=== PATIENT | female | born 1970 | race Two or more races ===

== ENCOUNTER 2021-12-18 06:30 | Outpatient (CLI) | payer OTHER | END 2021-12-18 23:59 | disposition home or self-care (01) | LOC: LAB 06:30 | PROVIDERS: ATTEND Specialist | DX: Z01.812 Encounter for preprocedural laboratory examination (principal); Z20.822 Contact with and (suspected) exposure to COVID-19 | CPT/HCPCS: U0003; C9803 ==

== ENCOUNTER 2021-12-25 07:49 | Day surgery (SDC) | payer OTHER ==
[2021-12-25 08:10] VITALS: BP 145/61
[2021-12-25] MEDS ORDERED: FENTANYL PF 100MCG/2ML AMPUL ONE (10:58)
[2021-12-25] MEDS ORDERED: MIDAZOLAM HCL 2 MG/2ML VIAL ONE (10:58)
[2021-12-25] MEDS ORDERED: ROCURONIUM BROMIDE 50 MG/5 ML ONE (10:58)
[2021-12-25] MEDS ORDERED: SUCCINYLCHOLINE CHLORIDE 20 MG/ML VIAL ONE (10:58)
[2021-12-25] MEDS ORDERED: BUPIVACAINE 0.5 % PF 150 MG/30 ML VIAL ONE (11:01)
[2021-12-25] MEDS ORDERED: EPINEPHRINE (1:1000) 1 MG/ML AMPUL ONE (11:02)
[2021-12-25] MEDS ORDERED: methylPREDNISolone ACETATE 80 MG/ML VIAL ONE (11:02)
[2021-12-25 13:10] VITALS: BP 147/72
[2021-12-25 13:40] VITALS: BP 117/72
[2021-12-25] MEDS ORDERED: HYDROCODONE/APAP 5/325MG TABLET PO PRN ×2 (14:00)
[2021-12-25 15:10] VITALS: BP 104/70
[2021-12-25 16:00] VITALS: BP 99/55
--- NOTE | 2021-12-25 16:00 | NUR ---
PATIENT LEFT FACILITY ACCOMPANIED BY STAFF WITH WHEEL CHAIR TO THE PRIVATE CAR. ALL VITAL SIGNS ARE STABLE. GIVEN DISCHARGE INSTRUCTIONS INCLUDE FOLLOW UP DR. MATA, PAIN MEDICATION, CHANGE DRESSING NEEDED. PATIENT DENIES FURTHER QUESTIONS. REMOVED IV LINE BEFORE PATIENT LEAVE THE FACILITY, IN STABLE CONDITION.
== END 2021-12-25 13:00 | disposition home or self-care (01) ==
LOC: DS 07:49 → MED 07:50 → UNDOADMIN 07:50 → DS 13:00 → UNDODISIN 16:00
PROVIDERS: ATTEND Specialist
DX: M75.42 Impingement syndrome of left shoulder (principal)
CPT/HCPCS: 29827; 84703; 29826; J0690; J3490 ×3; J1100; J2704; J0171; J3010; J0330; J2405; C1713 ×2; J2250; A6253; A6403; A4217; G0378; J1040

== ENCOUNTER 2022-06-11 14:57 | Outpatient (CLI) | payer OTHER | END 2022-06-11 23:59 | disposition home or self-care (01) | LOC: LAB 14:57 | PROVIDERS: ATTEND Specialist | DX: Z01.812 Encounter for preprocedural laboratory examination (principal); Z20.822 Contact with and (suspected) exposure to COVID-19 | CPT/HCPCS: U0003; C9803 ==

== ENCOUNTER 2022-06-16 06:16 | Day surgery (SDC) | payer OTHER ==
[~2022-06-16 06:16] MED LIST: ANESTHESIA TRAY IN PYXIS 1 EA TRAY MC ONE
[2022-06-16] MEDS ORDERED: FENTANYL PF 250MCG/5ML AMPUL ONE (06:39)
[2022-06-16] MEDS ORDERED: MIDAZOLAM HCL 2 MG/2ML VIAL ONE (06:39)
[2022-06-16] MEDS ORDERED: HYDROMORPHONE INJ 2 MG/ML DISP.SYRIN ONE (06:40)
[2022-06-16] MEDS ORDERED: FAMOTIDINE/PF INJ 20 MG/2 ML VIAL IV ONE (06:41)
[2022-06-16] MEDS ORDERED: SUCCINYLCHOLINE CHLORIDE 20 MG/ML VIAL ONE (06:41)
[2022-06-16] MEDS ORDERED: HYDROCODONE/APAP 5/325MG TABLET ONE (07:55)
[2022-06-16] MEDS ORDERED: ONDANSETRON HCL/PF 4 MG/2 ML VIAL ONE (08:33)
== END 2022-06-16 08:50 | disposition home or self-care (01) ==
LOC: DS 06:16
PROVIDERS: ATTEND Specialist
DX: M24.612 Ankylosis, left shoulder (principal); E66.3 Overweight
CPT/HCPCS: 23700; 84703; J2704; J1170; J3490 ×2; J2765; J0330 ×2; J2405 ×2; J7030; J2250; A4565; J3010